=== PATIENT | female | born 1995 | race African-American/Black ===

== ENCOUNTER 2016-07-12 14:43 | Emergency (ER) | payer MEDICAID ==
[~2016-07-12] VITALS: Ht 160 cm; Wt 61.0 kg
[2016-07-12 14:52] VITALS: BP 122/58
== END 2016-07-12 17:36 | disposition home or self-care (01) ==
LOC: ER 14:52
DX: Z11.4 Encounter for screening for human immunodeficiency virus [HIV] (principal); F17.210 Nicotine dependence, cigarettes, uncomplicated
CPT/HCPCS: 87186; 99283; 99284